=== PATIENT | female | born 1980 | race African-American/Black ===

== ENCOUNTER → 2019-09-02 14:16 | Outpatient (BNVA) | payer BC, SELFPAY | PROVIDERS: Family Provider Family Medicine; PCP Family Medicine; Visit Provider Obstetrics & Gynecology | DX: Z12.4 Encounter for screening for malignant neoplasm of cervix (principal); Z78.9 Other specified health status | CPT/HCPCS: 88175 ==

== ENCOUNTER 2019-10-01 21:06 | Emergency (ER) | payer BC, SELFPAY ==
[2019-10-01 21:12] VITALS: BP 132/85; PULSE 91; RESP 16; TEMP 37.6; O2SAT 97; BMI 34.9
--- NOTE | 2019-10-01 21:48 | XRR_ITS ---
PROCEDURE INFORMATION: Exam: XR Chest, 1 View Exam date and time: 10/01/2019 10:11 PM Age: 39 years old Clinical indication: Cough and fever; Patient HX: Headache, fever cough, body aches TECHNIQUE: Imaging protocol: XR of the chest Views: 1 view. COMPARISON: No relevant prior studies available. FINDINGS: Lungs: Unremarkable. No consolidation. Pleural space: Unremarkable. No pleural effusion. No pneumothorax. Heart/Mediastinum: Unremarkable. No cardiomegaly. Bones/joints: Unremarkable. XR/XR chest 1V portable [id number] IMPRESSION: No acute findings.
--- NOTE | 2019-10-01 21:52 | ED_ITS ---
HPI - General Adult General: Chief complaint: General Medical Stated complaint: flu s/s Time Seen by Provider: 10/01/19 21:21 History of Present Illness: HPI narrative: Patient is a 39-year-old female who comes into the ED with fever, chills, body aches and cough. Symptoms started yesterday. Patient is taking Tylenol Cold med and Mucinex to help with symptoms. Her cough is nonproductive. Patient is eating and drinking normally. Associated symptoms: Deny chest pain, dyspnea, headache(s), nausea, rash, palpitations or vomiting Review of Systems Const: Reports: fever, chills and body aches; Denies: fatigue Eyes: Denies: change in vision or eye discomfort ENMT: Denies: throat pain, painful swallowing, nasal discharge or nasal congestion Card: Denies: chest pain, palpitations, edema, swelling of feet/ankles, shortness of breath on exertion or shortness of breath when lying down Resp: Reports: non-productive cough; Denies: shortness of breath or productive cough GI: Denies: abdominal pain, nausea, vomiting, diarrhea, constipation or blood in stool : Denies: flank pain, painful urination or blood in urine Musc: Denies: neck pain, back pain or extremity swelling Skin/Breast: Denies: rash or new lesion Neuro: Denies: headache, numbness in extremities or weakness in extremities PFSH ED PFSH: Medical History Patient denies medical problems Denies history of: high blood pressure, diabetes, heart, lung, liver, kidney, thyroid, bleeding problems, or clotting problems Surgical History H/O dilation and curettage (~03/30/18) Hysteroscopy with dilation and curettage History of abdominoplasty (~12/2012) Performed i [place] History of delivery (~04/09/05) Primary section. Performed by Dr. Lind at [facility] in [place], [place]. History of delivery (~06/21/08) Repeat section. Performed by Dr. Chavira at [facility] in [place], [place]. History of dilation and curettage (~01/31/18) with suction, per Dr. Beebe at [facility] Hx of cholecystectomy (~10/2005) lapaoscopic Family History Father Hyperlipidemia Hypertension Mother Breast cancer Diagnosed in her 50s Thyroid condition Hypertension Unknown Patient denies medical problems Denies family history of: diabetes mellitus, heart disease, stroke, ovarian cancer, uterine cancer,or colon cancer Social History Smoking and tobacco status: never smoked Quit status (tobacco): has quit using tobacco Former quit date comment: only smoked for two weeks Alcohol intake: former Female Reproductive History: Date of last menstrual period: 09/02/19 Physical Exam Const: COMMON NORMALS: oriented x3 HENMT: COMMON NORMALS: normocephalic and TM's normal bilaterally HEAD & SCALP: normocephalic TYMPANIC MEMBRANE: TM's normal bilaterally MOUTH: oral and palatal mucosa normal THROAT: posterior oropharynx normal and uvula midline Neck/C-Spine: COMMON NORMALS: no lymphadenopathy and supple GENERAL: Yes normal visual inspection Resp: COMMON NORMALS: normal respiratory effort, no retractions, no use of a ccessory muscles and clear to auscultation bilaterally AUSCULTATION: clear to auscultation bilaterally Cardio: COMMON NORMALS: regular rate, regular rhythm, S1 normal heart sound, S2 normal heart sound, no gallops, no clicks, no murmurs and peripheral pulses 2+ throughout RATE: regular rate RHYTHM: regular rhythm HEART SOUNDS: S1 normal and S2 normal PERIPHERAL PULSES: pulses 2+ throughout GI: COMMON NORMALS: normal to inspection, nondistended, normoactive bowel sounds, soft to palpation, non-tender and no masses PALPATION: Yes soft : COMMON NORMALS: Yes no CVA tenderness BLADDER/KIDNEY EXAM: Yes no CVA tenderness Back/Pelvis: COMMON NORMALS: no CVA tenderness Extremity: COMMON NORMALS: normal to inspection Neuro: COMMON NORMALS: oriented x3 and moves all extremities Skin: COMMON NORMALS: no rashes or lesions noted GENERAL SKIN EXAM: no rashes or lesions noted and dry skin Course Vital Signs: Vital signs: Vital Signs Temperature 99.6 F 10/01/19 23:05 Pulse Rate 83 10/01/19 23:05 Respiratory Rate 18 10/01/19 23:05 Blood Pressure 114/70 10/01/19 23:05 Pulse Oximetry 98 10/01/19 23:05 MDM - General Adult Lab Data: Attestation: I reviewed the patient's lab results. Labs: Lab Results 10/01/19 Range/Units 21:50 Influenza Type A A g Positive H (Negative) POC Influenza B Ag Negative (Negative) Imaging Data^: CXR: Attestation: I personally reviewed and interpreted this imaging study as follows: My impression: No acute findings. Pending final radiology review Discharge Plan Discharge Patient Disposition: Home, Self-Care Clinical Impression: Influenza A Condition: Stable Prescriptions: New Tamiflu 75 mg capsule 75 mg PO BID 5 Days Qty: 10 RF: 0 No Action multivitamin Tablet 1 tab PO QDAY RF: 0 NuvaRing 0.12-0.015 mg/24 hr ring 1 vag ring VAGINAL .every three weeks 90 Days Qty: 3 RF: 3 Discharge Orders: Discharge Order (Routine); Ordered 10/01/19 Ordered By: Juan Bauman Referrals: Velma Sanford MD [Primary Care Provider] - Discharge Diet: Regular Discharge Activity: Increase activity as tolerated Patient Instructions: Influenza (ED) Activity Restrictions/Additional Instructions: Follow-up with your PCP in 7-10 days for reevaluation. Take Tamiflu as prescribed. Drink plenty of fluids and stay hydrated. She can take Tylenol or ibuprofen for fevers. Discharge Date/Time: 10/01/19 23:11 Coding Level of Care Code ED Research Geologist for Rishabh Fwd Exam Comprehensive
--- NOTE | 2019-10-01 22:24 | PC.NURSE ---
READ AND AGREE WITH ASSESSMENT
[2019-10-01 22:30] LABS: Influenza A by IFA Positive (Negative); Influenza B by IFA Negative (Negative)
[2019-10-01 23:05] VITALS: BP 114/70; PULSE 83; RESP 18; TEMP 37.6; O2SAT 98
== END 2019-10-01 23:11 | disposition home or self-care (01) ==
PROVIDERS: Emergency Medicine; Emergency Provider Physician Assistant; Family Provider Family Medicine; PCP Family Medicine
DX: J09.X2 Influenza due to identified novel influenza A virus with other respiratory manifestations (principal)
CPT/HCPCS: 71045; 87804; 99281; 99283

== ENCOUNTER 2022-04-29 09:48 | Outpatient (CLI) | payer BC, SELFPAY ==
--- NOTE | 2022-04-29 09:58 | MM_ITS ---
WS: [id number] Bilateral screening 3D tomosynthesis digital mammogram, 04/29/2022 Clinical Data: Z12.39 - Encounter for other screening for malignant neop... Comparison: 10/09/2017. Findings: The breast parenchymal pattern shows fibroglandular tissue. No spiculated masses or clustered calcifi cations are seen. There are no secondary signs of carcinoma. There are lymph nodes in both axilla. MM/[place] [id number] Impression: 1. Negative bilateral mammogram unchanged. 2. Recommend annual screening mammograms. BIRADS: 1-Negative FOLLOW UP: 1 Year Follow-up The CAD receiving dock checker was used.
== END 2022-04-29 09:49 | disposition home or self-care (01) ==
LOC: RAD 09:49
PROVIDERS: PCP Family Medicine; Visit Provider Family Medicine
DX: Z12.31 Encounter for screening mammogram for malignant neoplasm of breast (principal)
CPT/HCPCS: 77063; 77067

== ENCOUNTER 2022-06-08 07:37 | Day surgery (SDC) | payer BC, SELFPAY ==
--- NOTE | 2022-05-09 11:08 | PC.NURSE ---
Pt. on Phentermine and stated was not told to hold it for a week before surgery by Dr Beebe's office. Per [facility] anesthesia this medicine must be held for at least [address] burks notified that surgery is canceled.
[2022-06-06 11:34] VITALS: BMI 35.2
--- NOTE | 2022-06-06 11:59 | ANES.PREANE2 ---
Pre-Anesthetic Assessment Height/Weight: Height 1.68 m Weight 98.883 kg Preop Diagnosis: Desire permanent sterilization Operation Date: 06/08/22 09:05 Proposed Procedures p Laparoscopic bilateral salpingectom Z30.2(Bilateral) - Jl Beebe MD Familial anesthetic complications: None Social No alcohol and No tobacco Exam alert, oriented x 3, clear to auscultation bilaterally and regular rate & rhythm Airway Mallampati: Class I Dentition: full Pulmonary None reported CV/HEM None reported None reported Hepatic None reported GI None reported Metabolic None reported Musc/skel None reported Neuropsych None reported Anesthetic Plan ASA status: 1 Anesthesia: General Risk of > 500 ml blood loss (7ml/kg in children): No Medications/Allergies Home Medications Medication Instructions Recorded Confirmed Last Taken Type multivitamin 1 tab PO QDAY 09/02/19 06/06/22 10/01/19 History etonogestrel 0.12 mg-ethinyl 1 vag ring vaginal .every three 03/25/22 06/06/22 Unknown Rx estradiol 0.015 mg/24 hr vaginal weeks 90 days #3 ea ring (NuvaRing) Allergies Allergy/AdvReac Type Severity Reaction Status Date / Time No Known Allergies Allergy Verified 06/06/22 11:31 [facility] Anesthesia Surgical History H/O dilation and curettage (~03/30/18) Hysteroscopy with dilation and curettage History of abdominoplasty (~12/2012) Performed in [place] History of delivery (~04/09/05) Primary section. Performed by Dr. Lind at [facility] in [place], [place]. History of delivery (~06/21/08) Repeat section. Performed by Dr. Chavira at [facility] in [place], [place]. History of dilation and curettage (~01/31/18) with suction, per Dr. Beebe at [facility] Hx of cholecystectomy (~10/2005) lapaoscopic Family History (Updated 04/08/22 @ 08:33 by Lucy Pearl MD) Father Hyperlipidemia Hypertension Mother Breast cancer Diagnosed in her 50s Thyroid condition Hypertension Heart disease 50's Social History (Updated 04/08/22 @ 08:34 by Lucy Pearl MD) Smoking and tobacco status: former smoker Alcohol intake: never Household members: spouse and children Marital status: Number of children: 2 Female Reproductive History Date of last menstrual period: 06/06/22 Data Anesthesia Cardiac Studies: No Data to Display
[2022-06-06 13:48] LABS: OR HCG Qualitative Urine Negative (Negative)
[2022-06-06 13:59] LABS: Basophils # 0.1 10^3/uL (0.0-0.1); Basophils % 0.5 %; Eosinophils # 0.1 10^3/uL (0.0-0.8); Eosinophils % 0.8 %; Hematocrit 42.2 % (37.0-47.0); Hemoglobin 13.7 g/dL (11.5-15.3); Lymphocytes # 2.5 10^3/uL (0.8-4.8); Lymphocytes % 26.4 %; Mean Corpuscular HGB Conc 32.5 g/dL (30.0-36.0); Mean Corpuscular Hemoglobin 28.5 pg (28.0-34.0); Mean Corpuscular Volume 87.7 fl (81-99); Mean Platelet Volume 11.3 fL (7.4-10.4); Monocytes # 0.5 10^3/uL (0.2-0.9); Monocytes % 5.2 %; Neutrophils # 6.42 10^3/uL (1.8-7.7); Neutrophils % 66.7 %; Nucleated Red Blood Cells % 0 %; Platelet Count 304 10^3/cmm (130-400); Red Blood Count 4.81 10^6/uL (4.1-5.3); Red Cell Distribution Width 12.7 % (12.1-15.1); White Blood Count 9.6 10^3/uL (4.0-10.0)
[2022-06-06 14:02] LABS: Urine Appearance Clear (CLEAR); Urine Color Yellow (Yellow)
[2022-06-06 14:03] LABS: Add Urine Microscopic? YES; Bilirubin Urine Neg (Negative); Blood Urine 3+ (Negative); Glucose Urine UA Norm (Normal); Ketones Urine Negative (Negative); Leukocyte Esterase Urine Negative (Negative); Nitrate Urine Negative (Negative); Protein Urine Neg (Negative); Specific Gravity, Urine 1.015 (1.005-1.030); Urobilinogen Urine Norm (Negative); pH Urine 6 (5-7)
[2022-06-06 14:07] LABS: Add Urine Culture? No; RBC Urine 0-4 /hpf (0-2)
[2022-06-06 14:19] LABS: Alanine Aminotransferase 37 U/L (0-33); Albumin Level 4.1 g/dL (3.5-5.2); Alkaline Phosphatase 87 U/L (35-105); Aspartate Amino Transferase 26 U/L (0-32); Blood Urea Nitrogen 13 mg/dL (6-20); Calcium 9.6 mg/dL (8.5-10.5); Carbon Dioxide 27 mmol/L (22-29); Chloride 101 mmol/L (98-107); Globulin 3.3 g/dL (1.3-4.6); Glomerular Filtration Rate 79.4 mL/min (90-130); Glucose 82 mg/dL (65-115); Osmolality Calculated 285 mOsm/kg (285-295); Sodium 138 mmol/L (136-145); Total Bilirubin 0.5 mg/dL (0.15-1.2); Total Protein 7.4 g/dL (6.6-8.7)
[2022-06-08] VITALS (11 sets, daily range): BP systolic 113–158; BP diastolic 80–88; PULSE 61–82; RESP 10–19; TEMP 36.2–36.6; O2SAT 94–98
[2022-06-08 07:51] LABS: OR HCG Qualitative Urine Negative (Negative)
[2022-06-08] MEDS: scopolamine 1.5 Patch 1 PATCH TRANSDERMA (08:04)
[2022-06-08] MEDS: sodium chloride 0.9% 500 ML IV (08:05)
[2022-06-08] MEDS: sodium chloride 0.9% 1,000 ML 30 ML IV (08:06)
--- NOTE | 2022-06-08 08:38 | P.ANESUD_ITS ---
Pre-Anesthetic Update Pre-Anesthetic Assessment: Date of Surgery/Procedure: 06/08/22 Preop Vita gnosis: Desire permanent sterilization Proposed Procedure: Operation Date: 06/08/22 09:05 Proposed Procedures p Laparoscopic bilateral salpingectom Z30.2(Bilateral) - Jl Beebe MD Any changes to Pre-Anesthetic Assessment?: No Last Intake: Intake Last Liquid Date 06/07/22 Last Liquid Time 19:00 Last Solid Date 06/07/22 Last Solid Time 19:00 Labs Last 48hrs: Short CBC 06/06/22 Range/Units 11:45 WBC 9.6 (4.0-10.0) 10^3/ uL Hgb 13.7 (11.5-15.3) g/dL Hct 42.2 (37.0-47.0) % MCV 87.7 (81-99) fl Plt Count 304 (130-400) 10^3/c mm Neut % (Auto) 66.7 % Neut # (Auto) 6.42 (1.8-7.7) 10^3/u L BMP 06/06/22 11:45 Sodium 138 Potassium 4.0 Chloride 101 Carbon Dioxide 27 BUN 13 Creatinine 0.8 Glucose 82 Calcium 9.6 Liver Function 06/06/22 Range/Units 11:45 Total Bilirubin 0.5 (0.15-1.2) mg/dL AST 26 (0-32) U/L ALT 37 H (0-33) U/L Alkaline Phosphata se 87 (35-105) U/L Albumin 4.1 (3.5-5.2) g/dL Urine 06/06/22 Range/Units 11:45 Urine Color Yellow (Yellow) Urine Appearance Clear (CLEAR) Urine pH 6 (5-7) Ur Specific Gravit y 1.015 (1.005-1.030) Urine Protein Neg (Negative) Urine Glucose (UA) Norm (Normal) Urine Ketones Negative (Negative) Urine Nitrate Negative (Negative) Urine Bilirubin Neg (Negative) Ur Leukocyte Gina ase Negative (Negative) Urine RBC 0-4 H (0-2) /hpf Urine WBC None (0-5) /hpf Blood Bank 06/06/22 11:45 Blood Type O Positive Rho(D) Type Positive Antibody Screen Negative Vitals: Temperature 97.8 F 06/08/22 07:46 Temperature Source Temporal Artery S can 06/08/22 07:46 Pulse Rate 82 06/08/22 07:46 Respiratory Rate 17 06/08/22 07:46 Blood Pressure 158/88 06/08/22 07:46 Blood Pressure Pamela n 111 06/08/22 07:46 Pulse Oximetry 97 06/08/22 07:46 Oxygen Delivery Me thod 06/08/22 07:53 Exam: Pre-Anes Outpt Exam: alert, oriented x 3, clear to auscultation bilaterally and regular rate & rhythm Cardiac Studies: No Data to Display
--- NOTE | 2022-06-08 09:02 | W.PM.OPSUD ---
Surgery/Procedure H&P Update DATE OF PROCEDURE: June 08, 2022 DATE H&P PERFORMED: 06/06/22 H&P UPDATE INFORMATION: I have reviewed H&P completed within last 30 days, I have examined patient prior to procedure and No changes to prior documentation PREOP DIAGNOSIS: Desire permanent sterilization PLANNED PROCEDURE: Operation Date: 06/08/22 09:05 Proposed Procedures p Laparoscopic bilateral salpingectom Z30.2(Bilateral) - lJ Beebe MD
[2022-06-08] MEDS: ceFAZolin 2,000 MG in sodium chloride 0.9% (plus) 50 ML 100 MG IV (09:17)
--- NOTE | 2022-06-08 10:36 | PM.OP ---
Operative Report Date of procedure: June 08, 2022 Pre-op diagnosis: Preop Diagnosis Desire permanent sterilization Post-op diagnosis: Same as above. Pelvic adhesions uterus to abdominal wall Procedure done: Upper scopic bilateral salpingectomy sterilization Specimens removed/disposition: Left and right fallopian tubes Surgeon: Jl Beebe MD Estimated blood loss (mL): 10 IV fluids (mL): 600 Urine output (mL): 100 Complications: None Findings: Uterus adhered to anterior abdominal wall Procedure: After informed consent, the patient was taken to the operating room where general anesthesia was administered. She was placed in the dorsal lithotomy position and prepped and draped in sterile fashion. Pre-Procedure Time-Out verifying the correct patient identity, correct procedure verified with consent, correct site and side, correct patient position, availability of correct implants and any special equipment or requirements was performed and acknowledge by the OR team. The patient was examined under anesthesia and found to have a normal uterus with normal adnexa. A weighted speculum was placed in the vagina, and the anterior lip of cervix was grasped with the single toothed tenaculum. A uterine manipulator was advanced into the endocervical canal and uterus. The tenaculum was removed after uterine manipulator was secured. The speculum was removed from the vagina. An intraumbilical incision was made with a scalpel. While tenting up on the abdomen, a Verres needle was admitted into the intra-abdominal cavity. A saline drop test was performed and noted to be within normal limits. Pneumoperitoneum was attained with 4 liters of carbon dioxide. The Verres needle was removed. A 5 mm Opitc view trocar and sleeve were admitted into the abdomen and laparoscopic confirmation of location was achieved. Initial survey showed uterus adhered to the anterior abdominal wall. A second incision was made in the left lower quadrant and a 5 mm trocar sleeves were admitted into the abdomen under direct laparoscopic visualization without complication. Then rotating adhesions were lysed with the Voyant device to better mobilize the uterus. A third incision was made 3 cm above the symphysis pubis, and a 5 mm trocar sleeves were admitted into the abdomen under direct laparoscopic visualization without complication. A survey revealed normal abdominal anatomy with the exception of pelvic adhesions adhesion of the uterus to lower anterior abdominal wall. A 5 mm blunt probe was advanced through the second trocar sleeve, and light manipulation of ovaries and uterus to assess the posterior aspects was performed. The pelvic survey shows normal uterus, left and right adnexa. The left ovary was noted with a follicular cyst. The adhesion was fulgurated and transected with good hemostasis with the Voyant device. The patient was placed into Trendelenburg position. The fallopian tubes were inspected bilaterally and the fimbriated ends of the fallopian tubes were visualized bilaterally. Attention was then directed to the right side. The fallopian tube and mesosalpinx were grasped and the underlying mesosalpinx was cauterized and cut using the Ligasure device. Serial cauterization and cutting was used to separate the fallopian tube from the underlying mesosalpinx until it could be amputated cutting it approximated 2 cm from the cornua. Attention was then turned to the contralateral fallopian tube, which was removed in similar fashion. Both specimens were removed through the trocar and sent to pathology. The instruments were removed. The suprapubic trocar port was removed under direct visualization insuring good hemostasis. The carbon dioxide was allowed to escape from the abdomen. The intraumbilical trocar sleeve was withdrawn under visualization with laparoscope in the sleeve to insure hemostasis. The skin incisions were closed with 3-O Monocryl subcuticular stich and Dermabond. The instruments were removed from the vagina, and excellent hemostasis was noted. The incision was infiltrated with lidocaine with epi. The patient tolerated the procedure well, and sponge, lap and needle count were correct times two. The patient was taken to the recovery room in good condition.
[2022-06-08] MEDS: fentaNYL 50 mcg/mL INJ 2mL IVP (10:44)
[2022-06-08] MEDS: HYDROcodone-acetaminophen 5-325 mg Tablet 1 TAB PO (11:46)
[2022-06-08] MEDS: ondansetron 2 mg/ML SDV 2 mL 4 MG IVP (11:47)
--- NOTE | 2022-06-08 12:42 | ANE.PACU2 ---
Inpatient post-anesthesia follow up: Airway intact: Yes Vital signs: Temperature 97.1 F Pulse Rate 61 Respiratory Rate 12 Blood Pressure 119/81 Pulse Oximetry 95 Oxygen Delivery Me thod Room Air Oxygen Flow Rate Fraction of Inspir ed Oxygen Hydration adequate: Yes Nausea and vomiting: No Pain level: 1 Mental status: Baseline
[2022-06-08] MEDS: diphenhydrAMINE 50 mg/mL SDV 1mL 12.5 MG IVP (12:52)
== END 2022-06-08 13:10 | disposition home or self-care (01) ==
PROVIDERS: Anesthesiology; PCP Family Medicine; Visit Provider Obstetrics & Gynecology
PROC: (CPT 58661; principal; 2022-06-08 09:05)
DX: Z30.2 Encounter for sterilization (principal); K66.0 Peritoneal adhesions (postprocedural) (postinfection); Z87.891 Personal history of nicotine dependence
CPT/HCPCS: 58661; 36415; 80053; 81001; 81025; 84703; 85025; 86850; 86900; 88302; J0690; J1100; J1170; J1200; J2405; J2704; J2710; J3010; J3490; J7030; J7040

== ENCOUNTER → 2024-04-29 10:55 | Outpatient (BNVA) | payer BC, SELFPAY | PROVIDERS: PCP Family Medicine; Visit Provider Family Medicine | DX: Z00.00 Encounter for general adult medical examination without abnormal findings (principal) | CPT/HCPCS: 85025 ==

== ENCOUNTER 2024-05-23 07:24 | Outpatient (CLI) | payer BC, SELFPAY ==
--- NOTE | 2024-05-23 07:45 | US_ITS ---
WS: [id number] US pelv w/transvag [id number] HISTORY: llq pain, hx ovarian cysts COMPARISON: None available. Uterus: 9.0 cm x 4.0 cm x 4.6 cm. Uterus is anteverted. Slightly retroflexed on the transvaginal imaging. Urinary bladder is not comple tely empty. Very poor evaluation of the uterus. Uterus does not appear significantly enlarged and no mass identified. Endometrium: 0.3 cm. Limited evaluation. Right ovary: 2.1 cm x 1.3 cm x 2.0 cm. Normal size and vascularity, no cystic or solid masses. Left ovary: Not identified. No adnexal mass. No free fluid in the cul-de-sac. US/US pelv w/transvag [id number] IMPRESSION: 1. Technically limited evaluation of the uterus and adnexa due to position of the uterus and body habitus. 2. LEFT ovary is not identified. 3. Uterus appears normal size with no abnormality.
== END 2024-05-23 07:25 | disposition home or self-care (01) ==
LOC: RAD 07:25
PROVIDERS: PCP Family Medicine; Visit Provider Family Medicine
DX: R10.32 Left lower quadrant pain (principal); N83.209 Unspecified ovarian cyst, unspecified side
CPT/HCPCS: 76830; 76856

== ENCOUNTER → 2025-01-23 10:07 | Outpatient (BNVA) | payer OTHER, SELFPAY | PROVIDERS: PCP Family Medicine; Visit Provider Obstetrics & Gynecology | DX: R10.2 Pelvic and perineal pain (principal); Z01.419 Encounter for gynecological examination (general) (routine) without abnormal findings | CPT/HCPCS: 87624 ==

== ENCOUNTER 2025-05-12 10:55 | Outpatient (CLI) | payer OTHER, SELFPAY ==
--- NOTE | 2025-05-12 11:01 | XR_ITS ---
WS: [id number] Sacroiliac joints, 3 views, 05/12/2025 Clinical Data: si joint pain, R > L Comparison: None. Findings: The SI joints are normal in width. No erosion, sclerosis or destruction is seen. There are no fractures or dislocations. The adjacent visualized pelvis and hips are unremarkable. XR/XR sacroiliac jts m 3V [id number] Impression: Negative SI joints.
--- NOTE | 2025-05-12 11:01 | XR_ITS ---
WS: [id number] Lumbar spine, 3 views, 05/12/2025 Clinical Data: low back pain x months Comparison: None. Findings: No compression fractures or subluxation is seen. No disc space narrowing is seen. The transverse processes and SI joints are normal. There are small spurs of the lumbar vertebral bodies L2-L5. XR/XR lumbar spine 2-3V* [id number] Impression: Minimal osteoarthritis.
== END 2025-05-12 10:56 | disposition home or self-care (01) ==
LOC: RAD 10:57
PROVIDERS: PCP Family Medicine; Visit Provider Family Medicine
DX: M54.50 Low back pain, unspecified (principal); G89.29 Other chronic pain; M53.3 Sacrococcygeal disorders, not elsewhere classified; M25.78 Osteophyte, vertebrae
CPT/HCPCS: 72100; 72202